=== PATIENT | male | born 1970 | race Caucasian/White ===

== ENCOUNTER 2020-11-29 09:49 | Emergency (ER) | payer OTHER ==
[~2020-11-29] VITALS: Ht 188 cm; Wt 126.0 kg
[2020-11-29 10:05] VITALS: BP 157/108
[2020-11-29] MEDS ORDERED: IOHEXOL 300 MG/ML 75 ML VIAL. IV ONE (10:15)
[2020-11-29] MEDS ORDERED: ONDANSETRON PF 4 MG/2 ML VIAL. IVP PRN (10:15)
[2020-11-29] MEDS ORDERED: IOHEXOL 350 MG/ML 100 ML VIAL. IV ONE (10:30)
--- NOTE | 2020-11-29 10:38 | PHYS DOC ---
Past History Past Surgical History: No Surgical History (KJ GUTIERREZ) Alcohol Use: Rarely (KJ GUTIERREZ) General Adult EDM: Chief Complaint: ABDOMINAL PAIN HPI: HPI: Patient is a 50 year old male with history of hypertension who presents from urgent care with 3-day history of right lower quadrant abdominal pain. Patient states his pain began in the right lower quadrant and now radiates to the central periumbilical region. His pain at rest is 3/10, but movement greater than 7 minutes exacerbates the pain and causes him to become diaphoretic as well. Patient reports associated nausea and constipation, but denies vomiting and diarrhea. He has never had similar symptoms before and denies any prior abdominal surgeries. Patient did not take his hypertension medications this morning. Patient denies headache, vision changes, chest pain, palpitations, shortness of breath and cough. (KJ GUTIERREZ) Review of Systems: Review of Systems: Constitutional: Denies fever or chills Respiratory: See HPI Cardiovascular: See HPI GI: See HPI : Denies dysuria or hematuria Musculoskeletal: Denies back pain or joint pain Neurologic: See HPI (KJ GUTIERREZ) Current Medications: Current Meds: Current Medications Medications (Trade) Dose Ordered Sig/Perez Start Time Stop Time Status Last Admin Dose Admin Iohexol (Omnipaque 300 Mg/ml) 75 ml 1X ONCE 11/29/20 10:15 11/29/20 10:21 DC Iohexol (Omnipaque 350 Mg/ml) 100 ml 1X ONCE 11/29/20 10:30 11/29/20 10:31 Ondansetron HCl (Zofran) 4 mg PRN 1X PRN 11/29/20 10:15 (KJ GUTIERREZ) Allergies: Allergies: Allergies Coded Allergies Type Severity Reaction Last Updated Verified Penicillins Allergy Unknown 11/29/20 Yes (KJ GUTIERREZ) Physical Exam: PE: Constitutional: Well developed, well nourished, no acute distress, non-toxic appearance. Neck: Normal range of motion, no tenderness, supple, no stridor. Cardiovascular: Heart rate regular rhythm, no murmur. Lungs & Thorax: Bilateral breath sounds clear to auscultation. Abdomen: Bowel sounds normal, soft, no tenderness, no rebound/guarding, negative McBurney's point tenderness, negative Rovsing sign, no masses, no pulsatile masses. Skin: Warm, dry, no erythema, no rash. Extremities: No tenderness, no cyanosis, no clubbing, ROM intact, no edema. Neurologic: Alert and oriented x3, normal motor function, normal sensory function, no focal deficits noted. (KJ GUTIERREZ) Current Patient Data: Labs: Laboratory Tests Test 11/29/20 10:28 White Blood Count 5.6 x10^3/uL (4.0-11.0) Red Blood Count 5.16 x10^6/uL (4.30-5.70) Hemoglobin 15.5 g/dL (13.0-17.5) Hematocrit 46.1 % (39.0-53.0) Mean Corpuscular Volume 89 fL (79-100) Mean Corpuscular Hemoglobin 30 pg (25-35) Mean Corpuscular Hemoglobin Concent 34 g/dL (31-37) Red Cell Distribution Width 13.4 % (11.5-14.5) Platelet Count 155 x10^3/uL (140-400) Neutrophils (%) (Auto) 72 % (31-73) Lymphocytes (%) (Auto) 16 % (24-48) Monocytes (%) (Auto) 9 % (0-9) Eosinophils (%) (Auto) 3 % (0-3) Basophils (%) (Auto) 1 % (0-3) Neutrophils # (Auto) 4.0 x10^3uL (1.8-7.7) Lymphocytes # (Auto) 0.9 x10^3/uL (1.0-4.8) Monocytes # (Auto) 0.5 x10^3/uL (0.0-1.1) Eosinophils # (Auto) 0.1 x10^3/uL (0.0-0.7) Basophils # (Auto) 0.0 x10^3/uL (0.0-0.2) Sodium Level 140 mmol/L (136-145) Potassium Level 3.9 mmol/L (3.5-5.1) Chloride Level 105 mmol/L (98-107) Carbon Dioxide Level 31 mmol/L (21-32) Anion Gap 4 (6-14) Blood Urea Nitrogen 21 mg/dL (8-26) Creatinine 0.8 mg/dL (0.7-1.3) Estimated GFR (Cockcroft-Gault) 101.5 BUN/Creatinine Ratio 26 (6-20) Glucose Level 105 mg/dL (70-99) Lactic Acid Level 1.1 mmol/L (0.4-2.0) Calcium Level 8.9 mg/dL (8.5-10.1) Total Bilirubin 0.5 mg/dL (0.2-1.0) Aspartate Amino Transf (AST/SGOT) 27 U/L (15-37) Alanine Aminotransferase (ALT/SGPT) 50 U/L (16-63) Alkaline Phosphatase 77 U/L (46-116) Creatine Kinase 181 U/L (39-308) Creatine Kinase MB (Mass) 4.3 ng/mL (0.0-3.6) Creatine Kinase MB Relative Index 2.4 % (0-4) Troponin I Quantitative < 0.017 ng/mL (0-0.055) Total Protein 7.1 g/dL (6.4-8.2) Albumin 3.8 g/dL (3.4-5.0) Albumin/Globulin Ratio 1.2 (1.0-1.7) Lipase 104 U/L (73-393) Vital Signs: Vital Signs Date Time Temp Pulse Resp B/P (MAP) Pulse Ox O2 Delivery O2 Flow Rate FiO2 11/29/20 10:05 97.8 73 18 157/108 (124) 97 Room Air (KJ GUTIERREZ) EKG: EKG: EKG Interpreted by Dr. Epstein: Regular rate 64bpm and rhythm with no ectopic be ats. No concerning ST-T wave changes. Regular QR interval. (KJ GUTIERREZ) Radiology/Procedures: Radiology/Procedures: PROCEDURE: CT ANGIOGRAPHY ABD AND PELVIS CT of the abdomen and pelvis with contrast 11/29/2020 11:14 AM Indication: Reason: intermittent umbellical/rlq abd pain / Spl. Instructions: OMNI 350 100 ML / History: Comparison study: None available Technique: Multidetector CT imaging of the abdomen and pelvis was performed following the administration of IV contrast. Findings: The partially visualized lung bases demonstrate no acute abnormality. The liver, gallbladder, spleen, bilateral adrenal glands, bilateral kidneys, and pancreas, are grossly unremarkable. There is no bowel obstruction. No evidence of acute inflammatory change involving visualized bowel is identified. Appendix is visualized and unremarkable in appearance. Bladder is grossly unremarkable. No free fluid or free air is seen in the abdomen or pelvis. No acute osseous changes are identified. Impression: No evidence of acute intra-abdominal abnormality is identified. CT DOSING PQRS STATEMENT: One or more of the following individualized dose reduction techniques were utilized for this examination: 1. Automated exposure control 2. Adjustment of the mA and/or kV according to patient size 3. Use of iterative reconstruction technique Electronically signed by: Froilan Hankins MD (11/29/2020 11:14 AM) [id number] (KJ GUTIERREZ) Heart Score: C/O Chest Pain: No (KJ GUTIERREZ) Course & Med Decision Making: Course & Med Decision Making Pertinent Labs and Imaging studies reviewed. (See chart for details) Patient presentation is not consistent with acute appendicitis, however may be indicative of abdominal claudication. Work-up today will include EKG, blood work as well as abdomen/pelvis angiography. Patient states he does not need antiemetics at this time, however a dose of Zofran was ordered as needed. Work-up today was unremarkable aside from a slightly elevated CK-MB, which could be due to dehydration or consistently elevated blood pressure. Patient will be instructed to follow-up with his PCP regarding hypertension management. He will be provided with Zofran so that he might be able to hydrate and eat more comfortably. Patient is agreeable to discharge plan. (KJ GUTIERREZ) Dragon Disclaimer: Dragon Disclaimer: This electronic medical record was generated, in whole or in part, using a voice recognition dictation system. (KJ GUTIERREZ) Departure Departure: Impression: Primary Impression: Abdominal pain, non-surgical Additional Impression: Hypertension not at goal Disposition: 01 HOME / SELF CARE / HOMELESS Condition: STABLE Referrals: CELE DEVINE-C (PCP) Patient Instructions: Abdominal Pain, [id number] Additional Instructions: Your work-up in the emergency department today did not find any acute pathology including appendicitis, inflammation of the intestines, blood clots within the intestines or acute cardiac damage. Will be very important to hydrate and eat a bland diet (BRAT - bananas, rice, applesauce, toast/crackers) for the next couple of days. You may advance your diet to your normal eating habits as tolerated. If your abdominal pain and nausea do not resolve, or you develop new symptoms, please return to the emergency department. Additionally, you can follow-up with your primary care provider regarding your blood pressure medications should your blood pressure remain elevated throughout the day. It is best to keep a daily log of your blood pressure, preferably at the same time each day, to bring with you to your regular appointments. Scripts Ondansetron Hcl (ZOFRAN) 4 Mg Tablet 4 MG PO TID PRN PRN for NAUSEA, #15 TAB Take 1 tablet by mouth as needed up to 3 times per day for nausea. Prov: KJ GUTIERREZ 11/29/20 Attending Signature Attending Signature I have reviewed the PA/DIE BARBER's note and plan of care. I was available for consultation as needed during the patient's visit in the emergency department. I agree with the clinical impression, plan, and disposition. (CELE EPSTEIN DO) KJ GUTIERREZ Nov 29, 2020 10:38 CELE EPSTEIN DO Nov 29, 2020 13:58
[2020-11-29 10:43] LABS: BASO % 1 % (0-3); EOS # 0.1 x10^3/uL (0.0-0.7); EOS % 3 % (0-3); HEMATOCRIT 46.1 % (39.0-53.0); HEMOGLOBIN 15.5 g/dL (13.0-17.5); LYMPH # 0.9 x10^3/uL (1.0-4.8); LYMPH % 16 % (24-48); MEAN CORPUSCULAR HEMOGLOBIN 30 pg (25-35); MEAN CORPUSCULAR HGB CONC 34 g/dL (31-37); MEAN CORPUSCULAR VOLUME 89 fL (79-100); MONO # 0.5 x10^3/uL (0.0-1.1); MONO % 9 % (0-9); NEUT % 72 % (31-73); PLATELET COUNT 155 x10^3/uL (140-400); RED BLOOD COUNT 5.16 x10^6/uL (4.30-5.70); RED CELL DISTRIBUTION WIDTH 13.4 % (11.5-14.5); WHITE BLOOD COUNT 5.6 x10^3/uL (4.0-11.0)
[2020-11-29 11:10] LABS: CALCIUM 8.9 mg/dL (8.5-10.1); CREATININE 0.8 mg/dL (0.7-1.3); GFR 101.5; POTASSIUM 3.9 mmol/L (3.5-5.1)
[2020-11-29 11:15] LABS: ALBUMIN 3.8 g/dL (3.4-5.0); ALBUMIN/GLOBULIN RATIO 1.2 (1.0-1.7); TOTAL BILIRUBIN 0.5 mg/dL (0.2-1.0); TOTAL PROTEIN 7.1 g/dL (6.4-8.2)
--- NOTE | 2020-11-29 11:17 | RAD ---
CT of the abdomen and pelvis with contrast 11/29/2020 11:14 AM Indication: Reason: intermittent umbellical/rlq abd pain / Spl. Instructions: OMNI 350 100 ML / Hist ory: Comparison study: None available Technique: Multidetector CT imaging of the abdomen and pelvis was performed following the administrat ion of IV contrast. Findings: The partially visualized lung bases demonstrate no acute abnormality. The liver, gallbladder, spleen, bilateral adrenal glands, bilateral kidneys, and pancreas, are grossl y unremarkable. There is no bowel obstruction. No evidence of acute inflammatory change involving vis ualized bowel is identified. Appendix is visualized and unremarkable in appearance. Bladder is grossl y unremarkable. No free fluid or free air is seen in the abdomen or pelvis. No acute osseous changes are identified. Impression: No evidence of acute intra-abdominal abnormality is identified. CT DOSING PQRS STATEMENT: One or more of the following individualized dose reduction techniques were utilized for this examinat ion: 1. Automated exposure control 2. Adjustment of the mA and/or kV according to patient size 3. Use of iterative reconstruction technique Electronically signed by: Froilan Hankins MD (11/29/2020 11:14 AM) [id number]
[2020-11-29] MEDS ORDERED: ONDA4TAB7 PO (11:37)
--- NOTE | 2020-11-29 12:19 | EKG ---
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
== END 2020-11-29 11:57 | disposition home or self-care (01) ==
LOC: ER 09:49
DX: I10 Essential (primary) hypertension (principal); R10.31 Right lower quadrant pain; K59.00 Constipation, unspecified; Z88.0 Allergy status to penicillin
CPT/HCPCS: 36415; 74174; 80053; 82553; 83605; 83690; 84484; 85025; 93005; 99285; Q9967